=== PATIENT | male | born 1975 | race Caucasian/White ===

== ENCOUNTER → 2020-08-17 | Outpatient (CLI) | payer SELFPAY ==
--- NOTE | 2020-08-17 14:46 | US ---
EXAMINATION TYPE: US thyroid st tissue head/neck DATE OF EXAM: 08/17/2020 COMPARISON: NONE CLINICAL HISTORY: R59.0 ENLARGED LYMPHNODE. Patient states getting two palpable areas few days after Covid vaccine superior to left clavicle. Patient states they have decreased in size. Area of concern scanned. Three lymph node appearing lesion seen. Patent superficial vessels also se en. 1= 1.2 x 1.2 x 0.6 cm 2= 0.8 x 0.7 x 0.6 cm 3= 0.4 x 0.5 x 0.4 cm Contralateral images taken. IMPRESSION: 1. Enlarged lymphadenopathy left supraclavicular region. This is a known side effect from Covid vacci nation. Monitoring can be performed as needed.
[2020-08-17 16:41] VITALS: BP 142/93; PULSE 85; RESP 18; TEMP 98.3
--- NOTE | 2020-08-17 17:41 | P.GSHP ---
History of Present Illness H&P Date: 08/17/20 Chief Complaint: swollen left supraclavicular lymph node Neil is a 44 year old white male with a complaint of a swollen node in his supraclavicular area for about two weeks. It has decreased in size. He received his second Pfizer COVID vaccination approximately 2 days prior to filling the enlarged lymph node in the left supraclavicular area. It was not painful. He did not have any fever or chills. He did not feel any other swelling anyplace else. The patient states after his first vaccination he felt somewhat foggy but after the second vaccination he did not experience this. He did not have any fever or chills, did not have any muscle aches, he did not have any difficulty with his appetite. He did not have any fatigue. He has not had any changes in his appetite. He has not noted any testicular lumps or masses. The patient is not complaining of any masses or nodules in his breast. No nipple discharge or skin changes. . He has not noted any testicular lumps or masses. A left supraclavicular ultrasound was done on 08-17-19 which revealed 3 lymph nodes. The largest was 1.2 x 0.6 cm in size, there was a second which was 0.8 x 0.7 cm in size, and a third which was 0.4 x 0.5 cm in size. This was reviewed with radiology and they were felt to be consistent with reactive adenopathy. Family History: maternal uncle: prostate cancer paternal uncle: colon cancer paternal aunt: breast cancer (2) Past surgical history: Left knee surgery Oral surgery many years ago Medical history: Ailyn's thyroiditis type 2 DM spardic swelling uses antihistamines Social history: Nicotine: nicotine pouches, 6-7 daily alcohol: none drugs: Marijuana edibles to sleep - Constitutional Constitutional: Denies chills, Denies fever - EENT Eyes: denies blurred vision, denies pain Ears: deny: decreased hearing, tinnitus Ears, nose, mouth and throat: Denies headache, Denies sore throat - Breasts Breasts: bilateral: as per HPI - Cardiovascular Cardiovascular: Denies chest pain, Denies shortness of breath - Respiratory Respiratory: Denies cough, Denies 7 - Gastrointestinal Gastrointestinal: Reports diarrhea, Denies abdominal pain, Denies nausea, Denies vomiting - Genitourinary (Male) Genitourinary: Denies dysuria, Denies hematuria - Musculoskeletal Musculoskeletal: Denies myalgias - Integumentary Integumentary: Reports pruritus, Reports rash - Neurological Neurological: Denies numbness, Denies weakness - Psychiatric Psychiatric: Denies anxiety, Denies depression - Endocrine Comment: Ailyn's thyroiditis, and diabetes type 2 - Hematologic/Lymphatic Comment: none - Allergic/Immunologic Allergic/Immunologic: Reports as per HPI Past Medical History Additional Past Medical History / Comment(s): ailyn disease History of Any Multi-Drug Resistant Organisms: None Reported Past Surgical History: Orthopedic Surgery Past Anesthesia/Blood Transfusion Reactions: No Reported Reaction Past Psychological History: No Psychological Hx Reported Smoking Status: Never smoker Past Alcohol Use History: None Reported Past Drug Use History: Marijuana Medications and Allergies Home Medications Medication Instructions Recorded Confirmed Type Empagliflozin [Jardiance] 10 mg PO QAM 08/17/20 08/17/20 History Fexofenadine HCl [Svetlana Allergy] 60 mg PO BID 08/17/20 08/17/20 History metFORMIN HCL 500 mg PO BID 08/17/20 08/17/20 History Allergies Allergy/AdvReac Type Severity Reaction Status Date / Time No Known Allergies Allergy Unverified 08/17/20 16:35 Surgical - Exam Vital Signs Temp Pulse Resp BP Pulse Ox 98.3 F 85 18 142/93 98 08/17/20 16:37 08/17/20 16:37 08/17/20 16:37 08/17/20 16:37 08/17/20 16:37 BMI 34.6 - General well developed, well nourished, no distress - Eyes normal ocular movement - ENT normal pinna, normal mucosa - Neck left supraclavicular nodes two freely mobile trachea midline - Respiratory normal expansion, normal respiratory effort - Cardiovascular Rhythm: regular Heart Sounds: normal: S1, S2 - Abdomen Abdomen: soft, bowel sounds - Genitourinary no testicular masses testicles non-tender - Integumentary normal turgor - Musculoskeletal normal gait, normal posture - Psychiatric oriented to time, oriented to person, oriented to place, speech is normal, memory intact breast exam: Palpation: Right breast: Multi-positional exam no dominant masses or nodules of concern Right axilla: No adenopathy of concern Left breast: Multiple positional exam no dominant masses or nodules of concern Left axilla: No adenopathy of concern Examination of the lymphatics reveals: Left supraclavicular area 2 nodes which are freely mobile approximately 2 cm in size Second approximately 1 cm in size No other supraclavicular or cervical adenopathy of concern Axilla: No adenopathy of concern Liver and spleen not enlarged Bilateral groins no adenopathy of concern No testicular masses Results ultrasound left supraclavicular region reviewed with Dr. Ivy Assessment and Plan Assessment: Impression: 1. Left supraclavicular adenopathy following COVID vaccination which is decreasing in size 2. Family history of breast cancer 3. No other adenopathy of concern Plan: 1. Repeat left supraclavicular ultrasound in one month, physician exam at that time 2. If patient notes any changes sooner he will call us Cc: Dr. Marte Encounter 45 minutes: time spent in reviewing medical records, physical examination, and counselling.
== END | disposition home or self-care (01) ==
LOC: RADUSWWP 13:46
PROVIDERS: ATTEND Surgery
DX: R59.0 Localized enlarged lymph nodes (principal)
CPT/HCPCS: 76536